=== PATIENT | male | born 1960 | race Caucasian/White ===

== ENCOUNTER 2017-01-28 09:15 | Inpatient (IN) ==
[2017-01-23 18:51] LABS: Blood Urea Nitrogen 17 mg/dl (6-20)
[2017-01-23 19:15] LABS: Basophils # (Auto) 0 K/mcL (0.0-0.3); Basophils % (Auto) 0.5 % (0.0-2.0); Eosinophils # (Auto) 0.1 K/mcL (0.0-0.7); Eosinophils % (Auto) 2.1 % (0.0-7.0); Granulocytes % (Auto) 57.1 % (38.0-78.0); Lymphocytes # (Auto) 2.1 K/mcL (1.5-4.8); Lymphocytes % (Auto) 34.6 % (15.5-49.0); Mean Cell Volume 85.9 fL (80.0-100.0); Mean Corpuscular HGB Conc 35.9 g/dL (31.0-36.0); Mean Corpuscular Hemoglobin 30.8 pg (26.0-34.0); Monocytes # (Auto) 0.3 K/mcL (0.1-0.9); Monocytes % (Auto) 5.7 % (1.0-12.0); Platelet Count 271 K/mcL (140-440); RBC 4.45 M/mcL (4.50-5.90); Red Cell Distribution Width 12.8 % (11.5-14.5)
[2017-01-24 18:43] LABS: Appearance,Urine CLEAR; Bacteria,Urine 0 /hpf (0); Bilirubin,Urine NEG (NEG); Color,Urine YELLOW; Glucose,Urine (UA) 50 mg/dL (NEG); Leukocyte Esterase,Urine NEG /uL (NEG); Mucus,Urine FEW /hpf (0); Nitrate,Urine NEG (NEG); Protein,Urine 30 mg/dL (NEG); Specific Gravity,Urine 1.027 (1.000-1.035); Urine Blood NEG mg/dL (<0.03); Urine RBC < 1 /hpf (0-1); Urine Squamous Epithelial Cell 0 /hpf (0-4); Urine WBC 1 /hpf (0-4); Urobilinogen,Urine NEG (NEG)
[~2017-01-28 09:15] MED LIST: ACETAMINOPHEN 500 MG TABLET PO SCH; CELECOXIB 200 MG CAPSULE PO SCH; PREGABALIN 75 MG CAPSULE PO SCH; oxyCODONE 10 MG TAB.ER.12H PO SCH
[2017-01-28] MEDS ORDERED: ceFAZolin 1 GM VIAL ONE ×2 (10:49)
[2017-01-28] MEDS ORDERED: PROPOFOL 200 MG/20 ML VIAL IV ONE (11:00)
[2017-01-28] MEDS ORDERED: LIDOCAINE HCL/PF 100 MG/5 ML SYRINGE IV ONE (11:00)
[2017-01-28] MEDS ORDERED: fentaNYL 100 MCG/2 ML VIAL IV ONE (11:00)
[2017-01-28] MEDS ORDERED: DEXAMETHASONE 10 MG/ML VIAL IV ONE (11:00)
[2017-01-28] MEDS ORDERED: GLYCOPYRROLATE 0.2 MG/ML VIAL IV ONE (11:00)
[2017-01-28] MEDS ORDERED: ONDANSETRON 4 MG/2 ML VIAL IV ONE (11:00)
[2017-01-28] MEDS ORDERED: PHENYLEPHRINE 10 MG/ML VIAL IV ONE (11:00)
[2017-01-28] MEDS ORDERED: ePHEDrine 50 MG/ML AMPUL IV ONE (11:00)
[2017-01-28] MEDS ORDERED: TRANEXAMIC ACID 1,000 MG/10 ML VIAL IV ONE ×2 (11:00→13:00)
[2017-01-28] MEDS ORDERED: SUCCINYLCHOLINE 20 MG/ML ML IV ONE (11:00)
[2017-01-28] MEDS ORDERED: HETASTARCH 6% 500 ML BAG IV ONE (11:00)
[2017-01-28] MEDS ORDERED: MIDAZOLAM 5 MG/5 ML VIAL IV ONE (11:00)
[2017-01-28] MEDS ORDERED: GENTAMICIN SULFATE 800 MG/20 ML VIAL IR ONE (11:57)
[2017-01-28] MEDS ORDERED: IPRATROPIUM/ALBUTEROL 3 ML AMPUL.NEB NEB PRN (12:08)
[2017-01-28] MEDS ORDERED: FLUMAZENIL 0.1 MG/ML ML IV PRN (12:08)
[2017-01-28] MEDS ORDERED: NALOXONE HCL 0.4 MG/ML VIAL IV PRN (12:08)
[2017-01-28] MEDS ORDERED: HYDROmorphone 2 MG/ML SYRINGE IV PRN ×2 (12:08→13:00)
[2017-01-28] MEDS ORDERED: METOPROLOL TARTRATE 5 MG/5 ML VIAL IV PRN (12:08)
[2017-01-28] MEDS ORDERED: BENZOCAINE/MENTHOL 1 LOZENGE PO PRN (12:08)
[2017-01-28] MEDS ORDERED: ONDANSETRON 4 MG/2 ML VIAL IV PRN ×2 (12:08→13:00)
[2017-01-28] MEDS ORDERED: ATROPINE SULFATE 0.4 MG/ML VIAL IV PRN (12:08)
[2017-01-28] MEDS ORDERED: PROMETHAZINE 25 MG/ML VIAL IV PRN (12:08)
[2017-01-28] MEDS ORDERED: diphenhydrAMINE 50 MG/ML VIAL IV PRN (12:08)
[2017-01-28] MEDS ORDERED: ePHEDrine 50 MG/ML AMPUL IV PRN (12:08)
[2017-01-28] MEDS ORDERED: MEPERIDINE 25 MG/ML SYRINGE IV PRN (12:08)
[2017-01-28] MEDS ORDERED: METHOCARBAMOL 1,000 MG/10 ML VIAL IV PRN (12:08)
[2017-01-28] MEDS ORDERED: 0.9 % SODIUM CHLORIDE 250 ML IV SCH (12:15)
[2017-01-28] MEDS ORDERED: LACTATED RINGERS 1,000 ML IV SCH (12:15)
[2017-01-28] MEDS ORDERED: MAGNESIUM HYDROXIDE 30 ML ORAL.SUSP PO PRN (13:00)
[2017-01-28] MEDS ORDERED: TEMAZEPAM 15 MG CAPSULE PO PRN (13:00)
[2017-01-28] MEDS ORDERED: ACETAMINOPHEN 325 MG TABLET PO PRN (13:00)
[2017-01-28] MEDS ORDERED: FLEETS ADULT ENEMA PR PRN (13:00)
[2017-01-28] MEDS ORDERED: BISACODYL 10 MG SUPP.RECT PR PRN (13:00)
[2017-01-28] MEDS ORDERED: POLYETHYLENE GLYCOL 3350 17 GM PACKET PO PRN (13:00)
[2017-01-28] MEDS ORDERED: RIZATRIPTAN BENZOATE 5 MG PO PRN (13:04)
--- NOTE | 2017-01-28 13:08 | Brief Operative Note ---
Date of procedure: 01/28/17 Pre-op diagnosis: Right hip djd Post-op diagnosis: same Procedure: right total hip Grafts/Implants: Yes Anesthesia: KIRITA Surgeon: Darius Lujan Manager Telemarketing: Shon Montanez Estimated blood loss (cc): 300 Specimens Removed/Pathology: none sent Condition: stable Disposition: PACU
[2017-01-28] MEDS: fentaNYL 100 MCG/2 ML VIAL IV PRN ×4 (13:30→13:59)
[2017-01-28] MEDS: 0.9 % SODIUM CHLORIDE 10 ML SYRINGE IV SCH ×2 (14:28→21:12)
--- NOTE | 2017-01-28 14:37 | Operative Note ---
DATE OF OPERATION: 01/28/2017 PREOPERATIVE DIAGNOSIS: Right hip degenerative arthritis. POSTOPERATIVE DIAGNOSIS: Right hip degenerative arthritis. PROCEDURE: Right total hip arthroplasty. SURGEON: Darius Lujan MD. OPERATIONS WELDER: Shon Montanez PA-C. ANESTHESIA: General LMA anesthesia. COMPLICATIONS: None. DESCRIPTION OF PROCEDURE: The patient was brought to the operating room and put to sleep with general LMA anesthesia. Once asleep, the patient had the right hip sterilely prepped and draped in the usual sterile fashion. Once this was done, we confirmed the operative site and tranexamic acid had been given. We then proceeded with a total hip arthroplasty on the right side. We dislocated the hip superior posteriorly after making a superior posterior approach. We made the neck cut at 34 mm in total length, subluxed the hip anteriorly, and reamed up to the 59. We implanted a 60 mm cup with no holes and placed at 20 degrees of anteversion and 40 degrees of inclination. Once done, we then placed a dual mobility liner and broached up on the femur to the size 6 stem. We took two x-rays in different positions to check leg length and offset. Once confirmed, we then placed a #6 stem with a +4 neck length. We irrigated, closed the capsule with #2 Ethibond, closed the fascial layer with an interlocking stitch. We closed the skin with 2-0 Vicryl and adhesive closure superiorly. The patient tolerated this well without complications. RBH:shelley Job ID: [id number] Doc ID: [id number] Darius Lujan MD
[2017-01-28] MEDS: KETOROLAC 15 MG/ML VIAL IV PRN ×2 (14:38→22:24)
[2017-01-28] MEDS: HYDROcodone/APAP 10/325MG TABLET PO PRN ×3 (14:39→23:24)
--- NOTE | 2017-01-28 15:14 | XRay Report ---
CLINICAL INFORMATION: Postop total hip prostheses COMPARISON: 01/28/2017 intraoperative films FINDINGS: ] Right total hip prostheses is noted. There is more lateral canting and anteversion of the acetabular component then is typically seen. The femoral stem is anatomically aligned. Left hip and both SI joints show mild degenerative change. Soft tissue swelling over the surgical site appreciated. IMPRESSION: Right total hip prostheses with excessive lateral canting and anteversion of the acetabular component Interpreted and Authenticated by: Robinson Wen 01/28/17
[2017-01-28] MEDS: 0.45 % SODIUM CHLORIDE 1,000 ML IV SCH ×2 (15:30→21:54)
[2017-01-28] MEDS: BENZOCAINE/MENTHOL 1 LOZENGE PO PRN (16:42)
[2017-01-28] MEDS: metFORMIN 500 MG TABLET PO SCH (17:19)
[2017-01-28] MEDS: ceFAZolin 1 GM VIAL IV SCH (18:55)
[2017-01-28] MEDS ORDERED: INSULIN GLARGINE, HUMAN 1 UNIT/0.01 ML SQ SCH (21:00)
[2017-01-28] MEDS ORDERED: ESCITALOPRAM 20 MG TABLET PO SCH (21:00)
[2017-01-28] MEDS ORDERED: HYDROCHLOROTHIAZIDE 12.5 MG CAPSULE PO SCH (21:00)
[2017-01-28] MEDS ORDERED: SENNOSIDES 1 TABLET PO SCH (21:00)
[2017-01-28] MEDS ORDERED: LISINOPRIL 20 MG TABLET PO SCH (21:00)
[2017-01-28] MEDS: ASPIRIN 325 MG ENTERIC COATED TABLET PO SCH (21:12)
[2017-01-28] MEDS: DOCUSATE SODIUM 100 MG CAPSULE PO SCH (21:12)
[2017-01-29] MEDS: 0.45 % SODIUM CHLORIDE 1,000 ML IV SCH ×2 (01:24→11:51)
[2017-01-29] MEDS: ceFAZolin 1 GM VIAL IV SCH (02:46)
[2017-01-29] MEDS: HYDROcodone/APAP 10/325MG TABLET PO PRN ×3 (03:48→14:56)
[2017-01-29] MEDS: 0.9 % SODIUM CHLORIDE 10 ML SYRINGE IV SCH ×2 (05:18→14:18)
--- NOTE | 2017-01-29 07:24 | Orthopedic Progress Note ---
Subjective Patient information: Note initiated : 01/29/17 at 7:23 am Service Date, if different from initiated Date: [] Patient: Prudencio Monet 56 y/o M admitted on 01/28/17 for Right Total Hip Arthroplasty. Chief Complaint: [Pt is stable this morning on post operative day 1 without any significant concerns or complaints. Patients vital signs have remained stable. Patients dressing is dry and exhibits a grossly intact neurovascular and neuromotor exam. Patients 10 point ROS is otherwise negative. ] Objective Vital signs: Vital Signs Temp Pulse Resp BP BP Pulse Ox 01/29/17 07:22 97 01/29/17 06:44 97.8 F 16 135/66 97 01/29/17 06:00 98 01/29/17 03:24 98.5 F 69 24 H 131/71 97 01/29/17 03:23 97 01/29/17 01:08 97 01/28/17 22:51 97.9 F 77 24 H 136/71 95 01/28/17 21:00 98 01/28/17 19:23 98.0 F 71 24 H 148/72 94 01/28/17 16:38 93 01/28/17 16:30 97.9 F 16 123/68 93 01/28/17 15:40 97.8 F 18 132/82 97 01/28/17 15:01 94 01/28/17 14:55 98.0 F 20 120/75 96 01/28/17 14:41 20 123/77 94 01/28/17 14:26 97.6 F 20 127/80 95 01/28/17 14:15 97.5 F 18 123/83 94 01/28/17 13:55 98.1 F 70 17 154/72 98 01/28/17 13:45 70 17 149/71 98 01/28/17 13:28 70 18 147/70 98 01/28/17 13:13 97.6 F 76 16 144/63 97 01/28/17 13:01 94 01/28/17 09:30 98.1 F 18 153/89 98 Intake and Output 01/28/17 01/29/17 01/29/17 21:59 05:59 13:59 Intake Total 2150 / 2150 1630 / 1630 Output Total 427 / 427 1225 / 1225 Balance 1723 / 1723 405 / 405 Intake: IV 990 / 990 Sodium Chloride 0.45% 1, 990 / 990 000 ml @ 100 mls/hr IV . Q10H JOSE Rx#:[id number] Oral 2150 / 2150 640 / 640 Output: Void Amount 425 / 425 1225 / 1225 # of times incontinent of 2 / 2 urine Other: Meal Dinner (2) packs gram. crackers Percent of Meal Consumed 100% 100% Feeding Ability Independent # Bowel Movements 0 Weight 295 lb Intake & Output: Intake & Output 01/28/17 01/29/17 01/29/17 21:59 05:59 13:59 Intake Total 2150 / 2150 1630 / 1630 Output Total 427 / 427 1225 / 1225 Balance 1723 / 1723 405 / 405 Weight 295 lb Intake: IV 990 / 990 Sodium Chloride 0.45% 1, 990 / 990 000 ml @ 100 mls/hr IV . Q10H JOSE Rx#:[id number] Oral 2150 / 2150 640 / 640 Output: Void Amount 425 / 425 1225 / 1225 # of times incontinent of 2 / 2 urine Other: Meal Dinner (2) packs gram. crackers Percent of Meal Consumed 100% 100% Feeding Ability Independent # Bowel Movements 0 Incision: Yes healing Incision clean and dry: Yes Dressing: Yes clean, Yes dry Weight bearing status: full Neurological exam IM: Yes motor sensory intact, Yes neurovascular intact Extremities exam IM: Yes Foot pink and warm, Yes neurovascular intact - Labs CBC & BMP: 01/29/17 05:08 01/23/17 16:46 Labs: Orthopedic Labs 01/23/17 16:46 PT 13.3 INR 1.0 APTT 30 01/29/17 01/23/17 05:08 16:46 Hgb 13.7 Hct 29.7 L 38.2 L Assessment and Plan (1) Hx of total hip arthroplasty Patient has been educated regarding wound care and dressings, follow up recommendations, and medication use. We will f/u with the patient within 2-3 weeks for wound check. Status: Acute
--- NOTE | 2017-01-29 07:28 | Discharge Summary ---
Ortho Discharge - [facility] - Patient Instructions Diet: Regular Diet Activity: activity as tolerated, weight bearing as tolerated Total Hip Protocol: Follow activity instructions as provided by Physical Therapy. Dressing Care: May shower in 2 days - Problem Maintenance (1) Hx of total hip arthroplasty Status: Acute - Follow Up Plan Disposition: Home, Self-Care Prognosis: Good Rehab Potential: Good I certify that the patient requires SNF services: No Overall status at discharge: patient is progressing back to baseline - Orders For Discharge Prescriptions: Aspirin [Ecotrin] 325 mg PO BID #60 Docusate Sodium [Colace] 100 mg PO BID #60 capsule HYDROcodone/APAP 10/325MG [Lorimor 10/325Mg] 1 - 2 tab PO Q4HP PRN #75 tablet PRN Reason: Pain
[2017-01-29] MEDS: metFORMIN 500 MG TABLET PO SCH (07:52)
[2017-01-29] MEDS: DOCUSATE SODIUM 100 MG CAPSULE PO SCH (09:00)
[2017-01-29] MEDS: ASPIRIN 325 MG ENTERIC COATED TABLET PO SCH (09:00)
[2017-01-29] MEDS ORDERED: CALCIUM CARBONATE 500 MG TAB.CHEW CHEWED PRN (09:04)
[2017-01-29] MEDS: BENZOCAINE/MENTHOL 1 LOZENGE PO PRN (14:56)
[2017-01-29] MEDS ORDERED: FENOFIBRATE 43 MG CAPSULE PO SCH (21:00)
== END 2017-01-29 18:00 | disposition home or self-care (01) | DRG 470 ==
LOC: MEDSUR 09:15
PROVIDERS: ADMIT Orthopaedic Surgery; ATTEND Orthopaedic Surgery